=== PATIENT | male | born 1965 | race Caucasian/White ===

== ENCOUNTER → 2023-08-22 | Outpatient (CLI) | payer OTHER | LOC: M WUC 15:40 | PROVIDERS: ATTEND Nurse Practitioner Adult Health | DX: M25.511 Pain in right shoulder (principal) ==

== ENCOUNTER 2023-10-10 13:16 | Observation (INO) | payer BC ==
[~2023-10-10] VITALS: Ht 182.9 cm; Wt 106.0 kg
[2023-10-10] MEDS ORDERED: HYDR-3490 PO (13:41)
[2023-10-10] MEDS ORDERED: METO1TAB32 PO (13:41)
[2023-10-10] MEDS ORDERED: JARD1TAB3 PO (13:41)
[2023-10-10] MEDS ORDERED: METF500T13 PO (13:41)
[2023-10-10] MEDS ORDERED: LISI40TA4 PO (13:41)
[2023-10-10] MEDS ORDERED: GLIP10TA6 PO (13:41)
[2023-10-10] MEDS ORDERED: ASPI81TA26 PO (13:41)
[2023-10-10 13:45] LABS: BASO % 0.3 % (0.0-1.0); EOS % 0.4 % (0.0-3.0); HEMATOCRIT 49.7 % (42.0-52.0); LYMPH # 0.7 10^3/uL (1.5-5.0); MEAN CORPUSCULAR HGB CONC 32.2 g/dl (32.0-36.5); MEAN CORPUSCULAR VOLUME 86.9 fl (80.0-96.0); MONO # 0.7 10^3/uL (0.0-0.8); MONO % 6.5 % (2.0-8.0); NEUTROPHILS # 8.7 10^3/uL (1.5-8.5); NEUTROPHILS % 85.2 % (36.0-66.0); PLATELET COUNT, AUTOMATED 249 10^3/uL (150-450); RED BLOOD COUNT 5.72 10^6/uL (4.30-6.10); WHITE BLOOD COUNT 10.2 10^3/uL (4.0-10.0)
[2023-10-10] MEDS ORDERED: ISOVUE-370 76% 100ML VIAL As Ordered ONE (13:56)
[2023-10-10] MEDS: NS 1,000 ML IV SCH (13:58)
[2023-10-10 14:08] LABS: ALBUMIN 3.7 G/DL (3.2-5.2); BILIRUBIN,DIRECT 0.1 MG/DL (<0.4); BILIRUBIN,TOTAL 0.5 MG/DL (0.3-1.2); TOTAL PROTEIN 7.1 G/DL (5.7-8.2)
[2023-10-10] MEDS: PIPERACILLIN/TAZOBACTAM SOD 3.375 GM in D5W MINI-BAG PLUS 50 ML IV ONE (14:49)
[2023-10-10] MEDS ORDERED: NAPR-885 PO (15:29)
[2023-10-10] MEDS ORDERED: SEMA2PEN SC (15:29)
[2023-10-10] MEDS ORDERED: LANTINJ4 SC (15:29)
[2023-10-10] MEDS ORDERED: HOME MED LIST COMPLETE! XX SCH (15:30)
[2023-10-10] MEDS ORDERED: ACETAMINOPHEN TAB 650MG DOSE (2X325MG) PO PRN (15:40)
[2023-10-10] MEDS ORDERED: ONDANSETRON 4MG 2ML VIAL IV PRN ×2 (15:40→18:15)
[2023-10-10] MEDS ORDERED: HYDROmorphone 4MG TABLET PO PRN (15:40)
[2023-10-10] MEDS ORDERED: KCL 20MEQ IN D5/0.45NS 1000ML 1,000 ML IV SCH (16:00)
[2023-10-10] MEDS ORDERED: fentaNYL 100 MCG/2 ML INJECTION As Ordered ONE (16:02)
[2023-10-10] MEDS ORDERED: propofoL 200 MG/20 ML VIAL As Ordered ONE (16:02)
[2023-10-10] MEDS ORDERED: MIDAZOLAM INJ 2MG/2ML VIAL As Ordered ONE (16:02)
[2023-10-10] MEDS ORDERED: LIDOCAINE 2% 100MG/5ML SDV (FOR ANES.) As Ordered ONE (16:02)
[2023-10-10] MEDS ORDERED: SUGAMMADEX SODIUM 500 MG/5 ML VIAL (BRIDION) As Ordered ONE (16:03)
[2023-10-10] MEDS ORDERED: ROCURONIUM BROMIDE 50MG/5ML VIAL As Ordered ONE (16:03)
[2023-10-10] MEDS ORDERED: ONDANSETRON 4MG 2ML VIAL As Ordered ONE (16:03)
[2023-10-10] MEDS ORDERED: GLUCAGON INJ 1MG VIAL SC PRN ×2 (16:35→21:20)
[2023-10-10] MEDS ORDERED: GLUCOSE 4GM CHEW TABLET PO PRN ×2 (16:35→21:20)
[2023-10-10] MEDS ORDERED: INSULIN LISPRO (NovoLOG) PER UNIT SC SCH ×2 (16:35→18:00)
[2023-10-10] MEDS ORDERED: DEXTROSE 50% 50ML SYRINGE IV PRN ×2 (16:35→21:20)
[2023-10-10] MEDS ORDERED: ACETAMINOPHEN 1000MG 100ML IV BAG As Ordered ONE (16:45)
[2023-10-10] MEDS ORDERED: PHENYLephrine 500MCG 5ML (100MCG/ML) SYRINGE As Ordered ONE (16:48)
[2023-10-10] MEDS: INDOCYANINE GREEN 25MG VIAL (IC-GREEN) As Ordered ONE (17:00)
[2023-10-10] MEDS ORDERED: dexmedeTOMIDine (4MCG/ML)200MCG/50ML BTL (PRECEDEX) As Ordered ONE (17:15)
[2023-10-10] MEDS ORDERED: HYDROMORPHONE HCL 0.5 MG/ 0.5 ML SYRINGE IV PRN (18:15)
[2023-10-10] MEDS ORDERED: oxyCODONE 5MG TAB PO PRN (18:15)
[2023-10-10] MEDS ORDERED: fentaNYL 100 MCG/2 ML INJECTION IV PRN (18:15)
[2023-10-10 19:01] LABS: INR 0.93; PARTIAL THROMBOPLASTIN TIME 21.1 SECONDS (24.8-34.2); PROTHROMBIN TIME 12.2 SECONDS (12.5-14.5)
[2023-10-10 19:42] VITALS: BP 162/79; TEMP 97.7; O2SAT 96
[2023-10-10 20:15] VITALS: BP 154/80; TEMP 97.9; O2SAT 93
[2023-10-10 20:45] VITALS: BP 150/80; TEMP 97.7; O2SAT 94
[2023-10-10] MEDS: SENOKOT S TAB PO SCH (21:00)
[2023-10-10 22:00] VITALS: BP 129/75; TEMP 97.7; O2SAT 95
[2023-10-10] MEDS: PANTOPRAZOLE 40MG VIAL IV SCH (22:21)
[2023-10-10] MEDS: PIPERACILLIN/TAZOBACTAM SOD 3.375 GM in D5W MINI-BAG PLUS 50 ML IV SCH (22:22)
[2023-10-10] MEDS: DOCUSATE SODIUM 100MG CAPSULE PO SCH (22:22)
[2023-10-10] MEDS: D5W/0.9% SODIUM CHLORIDE 1,000 ML IV SCH (22:23)
[2023-10-10] MEDS: NICOTINE POLACRILEX 2 MG GUM PO PRN (22:39)
[2023-10-10 23:00] VITALS: BP 138/90; TEMP 98.2; O2SAT 95
[2023-10-11] VITALS: BP 151/92; TEMP 97.7; O2SAT 94
[2023-10-11 01:00] VITALS: BP 116/79; TEMP 97; O2SAT 96
[2023-10-11] MEDS: PERCOCET 5MG/325MG TAB PO PRN (03:27)
[2023-10-11 05:00] VITALS: BP 107/67; TEMP 97.3; O2SAT 93
[2023-10-11 07:05] LABS: HEMATOCRIT 39.7 % (42.0-52.0); MEAN CORPUSCULAR HEMOGLOBIN 28.3 pg (27.0-33.0); MEAN CORPUSCULAR VOLUME 85.7 fl (80.0-96.0); PLATELET COUNT, AUTOMATED 195 10^3/uL (150-450); RED BLOOD COUNT 4.63 10^6/uL (4.30-6.10); WHITE BLOOD COUNT 10.5 10^3/uL (4.0-10.0)
[2023-10-11 07:15] LABS: HEMOGLOBIN 13.1 g/dl (13.5-17.5)
[2023-10-11 07:25] LABS: ALBUMIN 2.9 G/DL (3.2-5.2); ALKALINE PHOSPHATASE 58 U/L (46-116); ALT/SGPT 24 U/L (7.0-40); AST/SGOT 14 U/L (<34); BILIRUBIN,TOTAL 0.9 MG/DL (0.3-1.2); BLOOD UREA NITROGEN 14 MG/DL (9-23); CARBON DIOXIDE LEVEL 27 MMOL/L (20-31); CHLORIDE LEVEL 105 MMOL/L (98-107); GLOMERULAR FILTRATION RATE > 60.0 (>56); GLUCOSE, FASTING 140 MG/DL (60-100); POTASSIUM SERUM 4.1 MMOL/L (3.5-5.1); SODIUM LEVEL 136 MMOL/L (136-145); TOTAL PROTEIN 5.7 G/DL (5.7-8.2)
[2023-10-11] MEDS: INSULIN LISPRO (NovoLOG) PER UNIT SC SCH (07:30)
[2023-10-11] MEDS: metFORMIN (GLUCOPHAGE) 500MG TAB PO SCH (08:37)
[2023-10-11] MEDS: ASPIRIN 81MG ENTERIC TABLET PO SCH (08:38)
[2023-10-11] MEDS: ENOXAPARIN 40MG/0.4ML SYRINGE (J1650 PER 10MG) SC SCH (08:41)
[2023-10-11 10:03] VITALS: BP 136/78; TEMP 97.9; O2SAT 95
[2023-10-11] MEDS ORDERED: AMOX875T2 PO (10:22)
[2023-10-11] MEDS ORDERED: HYDR-3715 PO (10:22)
[2023-10-11] MEDS ORDERED: lisinopriL 40MG TAB PO SCH (21:00)
[2023-10-11] MEDS ORDERED: METOPROLOL SUCC *XL* 25MG TAB (TopROL *XL*) PO SCH (21:00)
[2023-10-11] MEDS ORDERED: LEVEMIR (INSULIN DETEMIR) 1 UNITS/0.01ML SC SCH (21:00)
[2023-10-11] MEDS ORDERED: INSULIN LISPRO (NovoLOG) PER UNIT SC SCH (21:00)
== END 2023-10-11 11:25 | disposition home or self-care (01) ==
LOC: EDBD 13:16 → M ED 13:16 → M ED INP 13:17 → M MS5PR 20:16
PROVIDERS: ADMIT Surgery; ATTEND Surgery
DX: K35.80 Unspecified acute appendicitis (principal); I10 Essential (primary) hypertension; E11.9 Type 2 diabetes mellitus without complications; E78.5 Hyperlipidemia, unspecified; Z79.82 Long term (current) use of aspirin; Z79.4 Long term (current) use of insulin; Z79.84 Long term (current) use of oral hypoglycemic drugs; Z79.899 Other long term (current) drug therapy; Z88.5 Allergy status to narcotic agent
CPT/HCPCS: 36415; 44970; 74177; 80047; 80053; 80076; 81001; 83690; 85025; 85027; 85610; 85730; 88304; 93005; 94660; 96365; 96366; 96372; 96375; 99285; C9113; J0131; J0665; J1100; J1650; J2250; J2371; J2405; J2543; J3010; Q9967; S2900

== ENCOUNTER → 2024-06-30 | Outpatient (REF) | payer BC ==
[~2024-06-30] MED LIST: AMOX875T2 PO; ASPI81TA26 PO; GLIP10TA15 PO; HYDR-3490 PO; HYDR-3715 PO; JARD1TAB3 PO; LANTINJ4 SC; LISI40TA4 PO; METF500T13 PO; METO1TAB32 PO; NAPR-885 PO; SEMA2PEN SC
[2024-06-30 18:52] LABS: ATYPICAL LYMPH 2 % (0-5); EOSINOPHILS 1 % (0-3); LYMPHOCYTES 7 % (16-44); MONOCYTES 1 % (0-5); NEUTROPHILS 89 % (28-66); PLATELET ESTIMATE NORMAL (NORMAL)
== END ==
LOC: M LAB REF 16:38
PROVIDERS: ATTEND Nurse Practitioner Adult Health
DX: D72.9 Disorder of white blood cells, unspecified (principal)

== ENCOUNTER → 2024-06-30 | Outpatient (CLI) | payer BC | LOC: M PLAIMG 14:07 | PROVIDERS: ATTEND Nurse Practitioner Adult Health | DX: R07.81 Pleurodynia (principal); W19.XXXA Unspecified fall, initial encounter ==